=== PATIENT | male | born 1935 | race Caucasian/White ===

== ENCOUNTER 2018-02-07 06:17 | Day surgery (SDC) | payer OTHER, BC ==
--- NOTE | 2018-01-04 14:25 | HP ---
DATE OF ADMISSION: 02/07/2018 DATE OF SURGERY: 02/07/2018 BRIEF HISTORY AND HOSPITAL COURSE: This is an 82-year-old gentleman with a greater than 15-year history of having bilateral inguinal hernias. The patient states over the past 15 years the hernia has gotten larger, and he occasionally has discomfort in the area. At this time, he is essentially unbothered by the hernias but wishes to have these repaired. He has had no change in bowel habits, no nausea, no vomiting. The patient has a history of prostatism with overflow incontinence. He is status post TURP approximately 16 years ago. PAST MEDICAL HISTORY: Significant for hypercholesterolemia and hypertension. No coronary artery disease or diabetes. PAST SURGICAL HISTORY: TURP in 2001. He has had no other abdominal or pelvic surgeries. ALLERGIES: None. MEDICATIONS: Valsartan 180 mg b.i.d., metoprolol XL one tablet daily, triamterene/hydrochlorothiazide 37.5/25 once a day, atorvastatin 20mg once a day , tamsulosin 0.4 mg twice a day, a MVI for seniors and a baby aspirin. SOCIAL HISTORY: He does not smoke nor drink. No history of drug use. PHYSICAL EXAMINATION: Abdomen: Soft, nontender, nondistended. He has 2 large bilateral inguinal hernias. The left is greater than that of the right, and the left is only partially reducible in the supine position. Genitourinary: Scrotum and testicles within normal limits. Testicles atrophic. IMPRESSION AND PLAN: Bilateral inguinal hernias, left incarcerated inguinal hernia. This is an 82-year-old gentleman with very longstanding bilateral inguinal hernias. The one on the right is only partially reducible in the supine position. The patient is becoming more symptomatic from these hernias and, therefore, wishes to have these repaired. The patient will be scheduled for bilateral laparoscopic inguinal herniorrhaphy with mesh. If at the time of surgery this cannot be completed laparoscopically, he will be converted to an open left inguinal hernia repair with mesh. Due to his history of prostatism and overflow incontinence, I have asked that he follow up with the urologist prior to any surgical intervention. The options posed are some sort of TURP procedure either mechanical or green light prior to surgical intervention, Null catheter placement by the urologist 1 week prior to surgery, Null placement by the urologist at the time of surgery. This will all be discussed with the patient and the urologist at the time of his visit. Once this is completed, the patient will call the office, and we will have him definitively scheduled for surgical intervention of his hernias. The indications, alternatives, and complications discussed. We have especially talking about the possibility of a seroma on either side, which may or may not resolve due to the very large hernias at this time. He understands and wants to proceed. MONROE CHAMBERS M.D. [id number] cc: Dr. Robison [address] [place] [address] [facility]
[2018-02-05 16:43] VITALS: BMI 23.7
[2018-02-07] MEDS ORDERED: CEFAZOLIN 1 GM/D5W 1 GM/50 ML BAG ONE (07:11)
[2018-02-07] MEDS ORDERED: TAMSULOSIN HCL 0.4 MG CAP ONE (07:11)
[2018-02-07] MEDS ORDERED: TAMSULOSIN HCL 0.4 MG CAP PO ONE (07:30)
[2018-02-07] MEDS ORDERED: ONDANSETRON 4 MG/2 ML VIAL IVPUSH PRN (08:03)
[2018-02-07] MEDS ORDERED: MIDAZOLAM HCL 2 MG/2 ML SINGLE DOSE VIAL ONE (08:06)
[2018-02-07] MEDS ORDERED: PROPOFOL 20 ML ONE (08:07)
[2018-02-07] MEDS ORDERED: ROCURONIUM BROMIDE 50 MG/5 ML VIAL ONE ×2 (08:07→08:33)
[2018-02-07] MEDS ORDERED: ceFAZolin SODIUM 1 GM VIAL IVPB ONE (08:15)
[2018-02-07] MEDS ORDERED: LACTATED RINGERS SOLUTION 1,000 ML IV SCH (08:15)
[2018-02-07] MEDS ORDERED: NEOSTIGMINE METHYLSULFATE 0.5 MG/1 ML - 10 ML MDV ONE ×2 (08:46→10:52)
[2018-02-07] MEDS ORDERED: ePHEDrine SULFATE 50 MG/1 ML AMPULE ONE (10:12)
[2018-02-07] MEDS ORDERED: ONDANSETRON 4 MG/2 ML VIAL ONE (10:37)
--- NOTE | 2018-02-07 10:44 | OP ---
DATE OF OPERATION: 02/07/2018 PREOPERATIVE DIAGNOSIS: Bilateral chronically incarcerated inguinal hernias. POSTOPERATIVE DIAGNOSIS: Bilateral incarcerated inguinal hernias (left side was incarcerated direct and indirect, right side was incarcerated direct, small indirect non-incarcerated). PROCEDURE: Bilateral laparoscopic repair of incarcerated inguinal hernias (on both sides) with mesh. SURGEON: Jimbo Llanos MD INTERVIEWING CLERK: Ken Nunn MD ANESTHESIA: Myla Bautista MD (general). ESTIMATED BLOOD LOSS: Minimal. SPECIMEN: None. INDICATION FOR PROCEDURE: This is an 82-year-old gentleman with greater than a 15-year history of having bilateral inguinal hernias. They cause him discomfort. He wished to have these repaired. DESCRIPTION OF PROCEDURE: Patient identified and appropriately positioned on the operating room table. An infraumbilical incision was made, deepened through subcutaneous tissue. The rectus muscle on the right identified. The fascia split. The muscle subsequently split bluntly. The dissector balloon followed by a structural balloon was placed. A suprapubic 11-mm port placed also under direct vision. The following structures on the right side identified first; pubic tubercle, Colten ligament, and inferior epigastric vessels. During this dissection, the patient has an incarcerated, large direct inguinal hernia and a small indirect inguinal hernia. The direct component was incarcerated with fat which was reduced back in the preperitoneal space with blunt dissection. The indirect sac was reduced, as well. A 4.5 x 6-piece of Versatex mesh was keyhole placed through the suprapubic port site. The mesh wrapped around the cord structures, laid to reconstruct the internal ring. Laterally, mesh anchored to anterior abdominal wall, lateral abdominal wall. Medially, mesh anchored to anterior abdominal wall, pubic tubercle, and Colten ligament. Upon completion of the right side, similar structures on the left side identified. On the left side, patient is noted to have a larger, incarcerated direct inguinal hernia containing fat and bladder. This reduced back in the preperitoneal space. Another indirect sac was noted and this was very large. This reduced back in the preperitoneal space with blunt dissection. Another 4.5 x 6-piece of Versatex mesh was keyhole placed through the suprapubic port site. The mesh wrapped around the cord structures, laid to reconstruct the internal ring. Laterally, mesh anchored to anterior abdominal wall, pubic tubercle, and Colten ligament. There was good overlap in the midline and the mesh anchored to the anterior abdominal wall. The mesh used was Versatex. The anchoring system used was ReliaTack deep purchase anchors. All anterior abdominal wall and lateral abdominal wall anchors placed under direct counter palpation. The fascia at both sites reapproximated with interrupted 0-Vicryl suture. All skin closed with 4-0 subcuticular Biosyn, followed by Dermabond. At the conclusion of the case, sponge count was correct. ATTESTATION: Brief operative note handwritten on the preprinted form. [facility] will be queried, prior to giving narcotics. Nicola VALE [id number] cc: Dr. Anthony, [address] [place] [address]
[2018-02-07] MEDS ORDERED: PHENYLEPHRINE HCL 10 MG/1 ML SINGLE DOSE VIAL ONE (10:52)
[2018-02-07 12:56] VITALS: TEMP 97.6
[2018-02-07 20:00] VITALS: BP 135/63; PULSE 72
--- NOTE | 2018-02-08 09:08 | HP ---
DATE OF ADMISSION: 02/07/2018 Patient was initially evaluated by me in December of 2017. Due to the [facility] guidelines of 30 days, I am redictating this history and physical today after reevaluating him. Please refer to my original history and physical from December for complete details. BRIEF HISTORY: This is an 82-year-old gentleman who presents for hernia repair. He has had these hernias for greater than 15 years. PAST MEDICAL HISTORY: Significant for hypercholesterolemia, hypertension. No coronary disease or diabetes. PAST SURGICAL HISTORY: TURP in 2001. ALLERGIES: None. MEDICATIONS: Valsartan, metoprolol, HCTZ, Avastatin. SOCIAL HISTORY: Patient does not smoke or drink. PHYSICAL EXAMINATION: Abdomen: Soft, nontender, nondistended. He has 2 large bilateral inguinal hernias. The one on the left is greater than that on the right. The left is partially reducible and chronically incarcerated. IMPRESSION/PLAN: Bilateral inguinal hernias. Patient is here today for operative repair. There has been no significant change to his complaints. The indications, alternatives, and complications were discussed. Nicola VALE [id number] MTDD
== END 2018-02-07 19:55 | disposition home or self-care (01) ==
LOC: JASU-SURG 06:17
PROVIDERS: ATTEND Surgery
PROC: 0YUA4JZ Supplement Bilateral Inguinal Region with Synthetic Substitute, Percutaneous Endoscopic Approach (ICD-10-PCS; principal; 2018-02-07 08:00)
DX: K40.00 Bilateral inguinal hernia, with obstruction, without gangrene, not specified as recurrent (principal)
CPT/HCPCS: 94760

== ENCOUNTER 2023-06-10 10:08 | Emergency (ER) | payer OTHER, BC ==
[2023-06-10 10:17] VITALS: RESP 16; BMI 20.9
[2023-06-10 12:20] LABS: BASO % 0.9 % (0-2.0); EOS % 0.8 % (0-4.5); HEMOGLOBIN 12.2 GM/dL (11.7-16.9); LYMPH % 21.3 % (8-40); MCH 30.5 pg (25.7-33.7); MEAN CELL VOLUME 92.6 fl (80-96); MEAN PLT VOLUME 7.8 fl (7.5-11.1); MONO % 12.2 % (3.8-10.2); NEUT % 64.8 % (42.8-82.8); PLATELET COUNT 192 10^3/uL (134-434); RBC 3.99 M/mm3 (4.00-5.60); RDW 13.9 % (11.9-15.9); WHITE BLOOD COUNT 5.3 K/mm3 (4.0-10.0)
[2023-06-10 12:24] LABS: EPI CELLS 2 /uL (0-25.1); HYALINE CASTS 1 /uL (0-3.1); URINE APPEARANCE Error; URINE BACTERIA 145 /uL (0-1359); URINE BILIRUBIN NEGATIVE (NEGATIVE); URINE COLOR YELLOW; URINE GLUCOSE (UA) NEGATIVE (NEGATIVE); URINE KETONE NEGATIVE (NEGATIVE); URINE LEUK ESTERASE 1+ (NEGATIVE); URINE NITRITE NEGATIVE (NEGATIVE); URINE PROTEIN TRACE (NEGATIVE); URINE RBC 699 /uL (0-23.9); URINE UROBILINOGEN 0.2 mg/dL (0.2-1.0); URINE WBC 173 /uL (0-25.8)
[2023-06-10 12:27] LABS: POTASSIUM 4.2 mmol/L (3.5-5.1)
[2023-06-10 12:29] LABS: CALCIUM 9.1 mg/dL (8.5-10.1)
[2023-06-10 12:30] LABS: ALBUMIN 3.3 g/dl (3.4-5.0); BLOOD UREA NITROGEN 25.2 mg/dL (7-18)
[2023-06-10 12:33] LABS: CREATININE 1.3 mg/dL (0.55-1.3)
[2023-06-10 12:34] LABS: BILIRUBIN,TOTAL 0.5 mg/dL (0.2-1)
[2023-06-10 14:18] VITALS: BP 122/68; PULSE 64; TEMP 97.7
== END 2023-06-10 14:26 | disposition home or self-care (01) ==
LOC: JER 10:08
PROC: 0T9B70Z Drainage of Bladder with Drainage Device, Via Natural or Artificial Opening (ICD-10-PCS; principal; 2023-06-10)
DX: N39.0 Urinary tract infection, site not specified (principal); R39.81 Functional urinary incontinence; R33.9 Retention of urine, unspecified
CPT/HCPCS: 36415; 80053; 81003; 85025; 87086; 99283-25

== ENCOUNTER 2023-07-18 21:52 | Emergency (ER) | payer OTHER, BC ==
[2023-07-18 21:57] VITALS: BP 123/65; PULSE 65; RESP 17; TEMP 98.2; BMI 20.9
[2023-07-18 23:36] LABS: EPI CELLS 2 /uL (0-25.1); HYALINE CASTS 0 /uL (0-3.1); URINE APPEARANCE TURBID; URINE BACTERIA 1518 /uL (0-1359); URINE BILIRUBIN NEGATIVE (NEGATIVE); URINE COLOR YELLOW; URINE GLUCOSE (UA) NEGATIVE (NEGATIVE); URINE KETONE NEGATIVE (NEGATIVE); URINE LEUK ESTERASE 3+ (NEGATIVE); URINE NITRITE NEGATIVE (NEGATIVE); URINE PROTEIN 1+ (NEGATIVE); URINE RBC 128 /uL (0-23.9); URINE UROBILINOGEN 0.2 mg/dL (0.2-1.0); URINE WBC 9189 /uL (0-25.8)
[2023-07-18] MEDS ORDERED: CEFTRIAXONE 1 GM/50 ML BAG ONE (23:53)
[2023-07-18 23:57] LABS: BASO % 1.1 % (0-2.0); EOS % 1.8 % (0-4.5); HEMATOCRIT 37.8 % (35.4-49); HEMOGLOBIN 12.9 GM/dL (11.7-16.9); LYMPH % 19.6 % (8-40); MCH 31.3 pg (25.7-33.7); MCHC 34.2 g/dl (32.0-35.9); MEAN CELL VOLUME 91.3 fl (80-96); MEAN PLT VOLUME 8.2 fl (7.5-11.1); MONO % 10.5 % (3.8-10.2); PLATELET COUNT 186 10^3/uL (134-434); RBC 4.14 M/mm3 (4.00-5.60); RDW 13.8 % (11.9-15.9); WHITE BLOOD COUNT 6.9 K/mm3 (4.0-10.0)
[2023-07-18] MEDS: CEFTRIAXONE 1,000 MG in DEXTROSE 5%-WATER - 50 ML IVPB ONE (23:58)
[2023-07-19 00:16] LABS: POTASSIUM 4.4 mmol/L (3.5-5.1)
[2023-07-19 00:18] LABS: ALBUMIN 3.3 g/dl (3.4-5.0); CALCIUM 8.9 mg/dL (8.5-10.1)
[2023-07-19 00:21] LABS: CREATININE 1.4 mg/dL (0.55-1.3)
[2023-07-19 00:23] LABS: BILIRUBIN,TOTAL 0.6 mg/dL (0.2-1); TOT PROT 6.2 g/dl (6.4-8.2)
== END 2023-07-19 00:37 | disposition home or self-care (01) ==
LOC: JER 21:52
PROC: 0T9B70Z Drainage of Bladder with Drainage Device, Via Natural or Artificial Opening (ICD-10-PCS; principal; 2023-07-18)
PROC: 3E03329 Introduction of Other Anti-infective into Peripheral Vein, Percutaneous Approach (ICD-10-PCS; 2023-07-18)
DX: N39.0 Urinary tract infection, site not specified (principal); N40.1 Benign prostatic hyperplasia with lower urinary tract symptoms; R33.8 Other retention of urine; N35.919 Unspecified urethral stricture, male, unspecified site
CPT/HCPCS: 36415; 51702; 80053; 81003; 85025; 87086; 87186; 93005; 93010; 96365; 99284-25